=== PATIENT | female | born 1990 | race Caucasian/White ===

== ENCOUNTER 2020-10-25 10:46 | Emergency (ER) | payer MEDICAID ==
[~2020-10-25] VITALS: Ht 180.3 cm; Wt 181.4 kg
[2020-10-25 11:02] VITALS: BP 133/55; Ht 180.3 cm; Wt 181.4 kg
== END 2020-10-25 14:09 | disposition home or self-care (01) ==
LOC: ED 10:46
DX: U07.1 COVID-19 (principal); J12.89 Other viral pneumonia